=== PATIENT | male | born 1960 | race Caucasian/White ===

== ENCOUNTER 2017-12-29 14:50 | Emergency (ER) | payer OTHER ==
[2017-12-29] MEDS ORDERED: Lidocaine 1% 20 ML MDV INJECT ONE (15:58)
[2017-12-29] MEDS ORDERED: cefTRIAXone 1 GM Vial IM ONE (15:58)
[2017-12-29] MEDS ORDERED: Ketorolac 60 MG/2 ML SDV IM ONE (15:58)
--- NOTE | 2017-12-29 16:11 | EDM.PDOC ---
ED HPI GENERAL MEDICAL PROBLEM - General Chief Complaint: Upper Extremity Injury/Pain Stated Complaint: INFECTION ON FINGER Time Seen by Provider: 12/29/17 15:45 Source of Information: Reports: Patient History Limitations: Reports: No Limitations - History of Present Illness INITIAL COMMENTS - FREE TEXT/NARRATIVE: Patient presents to ER with complaints of right index finger pain. He relates that he froze his fingers about a year ago and then crushed this one in some equipment. Four months ago, he started to note an open wound to the distal tip of his finger and it has continued to "wear away since then". He finally presented to have this evaluated due to the pain he is experiencing and with his children's urging. He has been putting GENEVA on it and keeping it covered but it continues to get worse. He relates "he doesn't like to go to the doctor but now realizes he is probably going to lose his finger". No fevers. No pain in other digits. Onset: Gradual Duration: Week(s):, Getting Worse Location: Reports: Upper Extremity, Right Quality: Reports: Sharp Severity: Severe Worsens with: Reports: Movement Treatments QUALITY ASSURANCE TESTER: Reports: Dressing(s) Right 2-Index finger Pain Score (Numeric/FACES): 7 - Related Data Allergies Allergy/AdvReac Type Severity Reaction Status Date / Time No Known Allergies Allergy Verified 12/29/17 15:03 Home Meds: Home Meds . [No Known Home Meds] 12/29/17 [History] Past Medical History Cardiovascular History: Reports: Hypertension Social & Family History - Tobacco Use Smoking Status *Q: Current Every Day Smoker Years of Tobacco use: 40 Packs/Tins Daily: 1.5 - Caffeine Use Caffeine Use: Reports: Coffee - Recreational Drug Use Recreational Drug Use: No Review of Systems - Review of Systems Review Of Systems: See Below Constitutional: Denies: Chills, Diaphoresis, Fever Eyes: Reports: No Symptoms Ears: Reports: No Symptoms Nose: Reports: No Symptoms Mouth/Throat: Reports: No Symptoms Respiratory: Reports: No Symptoms Cardiovascular: Reports: No Symptoms GI/Abdominal: Reports: No Symptoms Musculoskeletal: Reports: Hand Pain Skin: Reports: Erythema, Wound Neurological: Reports: Tingling ED EXAM, GENERAL - Physical Exam Exam: See Below Exam Limited By: No Limitations General Appearance: Alert, Mild Distress Ears: Normal External Exam, Normal TMs Nose: Normal Inspection, Normal Mucosa Throat/Mouth: Normal Inspection, Normal Oropharynx Head: Normocephalic Neck: Normal Inspection, Supple, Non-Tender Respiratory/Chest: No Respiratory Distress, Lungs Clear, Normal Breath Sounds Cardiovascular: Regular Rate, Rhythm Extremities: Limited Range of Motion, Increased Warmth, Other (Right index finger noted to have foul odor, purulent drainage. Distal tip of finger is gone nursing home to the DIP joint. Bone exposed. Tissue very tender and red. Erythema does spread to the mid finger. ROM limited due to pain.) Course - Vital Signs Last Recorded V/S: Last Vital Signs Temp 98.7 F 12/29/17 15:00 Pulse 95 12/29/17 15:00 Resp 18 12/29/17 15:00 BP 190/104 H 12/29/17 15:31 Pulse Ox 98 12/29/17 15:00 - Orders/Labs/Meds Orders: Active Orders 24 hr Category Date Time Status Fingers Second Digit Rt F6 [CR] Stat Exams 12/29/17 15:46 Taken CULTURE WOUND [RM] Stat Lab 12/29/17 15:50 Results Meds: Medications Discontinued Medications Generic Name Dose Route Start Last Admin Trade Name Freq PRN Reason Stop Dose Admin Ceftriaxone Sodium 1 gm 12/29/17 15:58 12/29/17 16:14 Rocephin IM 12/29/17 15:59 1 gm ONETIME ONE Administration Ketorolac Tromethamine 60 mg 12/29/17 15:58 12/29/17 16:14 Toradol IM 12/29/17 15:59 60 mg ONETIME ONE Administration Lidocaine HCl 20 ml 12/29/17 15:58 12/29/17 16:14 Xylocaine 1% INJECT 12/29/17 15:59 2.1 ml ONETIME ONE Administration - Re-Assessments/Exams Free Text/Narrative Re-Assessment/Exam: 12/29/17 Xray taken. Does appear to disruption of the distal phalanx wound cultured. Applied GENEVA. Wrapped with telfa and eric. Rocephin and Toradol given. Contacted the wound clinic in [place]. Will see patient on Friday for further definitive treatment of this digit. Family aware Departure - Departure Time of Disposition: 16:03 Disposition: Home, Self-Care 01 Condition: Fair Clinical Impression: Cellulitis and abscess of finger, unspecified - Discharge Information Instructions: Acetaminophen; Hydrocodone tablets or capsules, Lisinopril tablets, Sulfamethoxazole; Trimethoprim, SMX-TMP tablets Forms: ED Department Discharge Additional Instructions: 1. Keep wound clean and dry and covered 2. Bactrim DS one tab twice a day for 10 days 3. Erin 5/325 1-2 tabs every 6 hours as needed for pain 4. Lisinopril 10 mg daily 5. Wound care appointment on 1 pm at [facility] 6. Contact us with any questions - My Orders Last 24 Hours: My Active Orders 12/29/17 15:46 Fingers Second Digit Rt F6 [CR] Stat 12/29/17 15:50 CULTURE WOUND [RM] Stat - Assessment/Plan Last 24 Hours: My Active Orders 12/29/17 15:46 Fingers Second Digit Rt F6 [CR] Stat 12/29/17 15:50 CULTURE WOUND [RM] Stat
== END 2017-12-29 16:32 | disposition home or self-care (01) ==
LOC: CC.ED 14:50
DX: L03.011 Cellulitis of right finger (principal); L02.511 Cutaneous abscess of right hand; F17.210 Nicotine dependence, cigarettes, uncomplicated; I10 Essential (primary) hypertension
CPT/HCPCS: 73140-F6; 87070; 96372; 99283; J0696; J1885

== ENCOUNTER 2018-08-26 08:42 | Emergency (ER) | payer OTHER ==
[2018-08-26] MEDS ORDERED: Sodium Chloride 0.9% 500 ML ONE (09:09)
[2018-08-26] MEDS ORDERED: Metoprolol Tartrate 5 MG/5 ML SDV ONE (09:10)
[2018-08-26] MEDS ORDERED: Metoprolol Tartrate 5 MG/5 ML SDV IVPUSH ONE (09:17)
--- NOTE | 2018-08-26 09:17 | EDM.PDOC ---
ED HPI GENERAL MEDICAL PROBLEM - General Chief Complaint: Neurological Problem Stated Complaint: SLEEPING ALL THE TIME Time Seen by Provider: 08/26/18 08:55 Source of Information: Reports: Patient, Family History Limitations: Reports: Altered Mental Status - History of Present Illness INITIAL COMMENTS - FREE TEXT/NARRATIVE: Patient presents today with family with a 2 week history of change in mental status. Son reports that on , he seemed confused, was just laying around on the couch but was still conversive. Over the next 2 days, status worsened and on that Friday, could hardly arouse him but when they did, he refused to come to the doctor. Son reports that at times, he does seem coherent , other times not. Has been laying on the couch much of the last 2 weeks. Not going to work, not eating or drinking much. Today, told him he was going and do to his weakness, "he couldn't prevent us from bringing him here". Patient is oriented to person and place, disoriented to time. Uncooperative with answering any questions. Alert. Onset: Gradual Duration: Week(s): Location: Reports: Generalized Severity: Moderate Associated Symptoms: Reports: Confusion, Weakness. Denies: Chest Pain, Cough, Fever/Chills, Loss of Appetite, Nausea/Vomiting, Shortness of Breath - Related Data Allergies Allergy/AdvReac Type Severity Reaction Status Date / Time No Known Allergies Allergy Verified 08/26/18 09:34 Home Meds: Home Meds Lisinopril 10 mg PO DAILY 08/26/18 [History] Past Medical History Cardiovascular History: Reports: Hypertension Social & Family History - Caffeine Use Caffeine Use: Reports: Coffee ED ROS GENERAL - Review of Systems Review Of Systems: See Below Constitutional: Reports: Malaise, Weakness, Decreased Appetite, Other (ROS minimal from patient as will not elaborate on anything except say he's in pain. Other information from family). Denies: Fever, Chills HEENT: Reports: Nosebleed, Vision Change. Denies: Ear Pain, Rhinitis, Sinus Problem Respiratory: Denies: Shortness of Breath, Cough Cardiovascular: Denies: Chest Pain, Edema, Lightheadedness Endocrine: Denies: Fatigue GI/Abdominal: Denies: Abdominal Pain, Nausea, Vomiting Skin: Reports: Pallor Neurological: Reports: Confusion, Weakness ED EXAM, NEURO - Physical Exam Exam: See Below Exam Limited By: Uncooperative General Appearance: Alert, WD/WN Eye Exam: Bilateral Eye: PERRL, Other (Patient refused to follow any command for exam. Unable to examine EOM as a result) Ears: Normal External Exam, Normal TMs Nose: Other (Old dried blood around right nare, no active bleeding noted.) Throat/Mouth: Other (dried blood on lips. Mucous membranes very dry, white coating on tongue) Head Exam: Normocephalic Neck: Normal Inspection, Supple, Non-Tender Respiratory/Chest: No Respiratory Distress, Lungs Clear Cardiovascular: Regular Rate, Rhythm GI/Abdominal: Normal Bowel Sounds, Soft, Non-Tender Neurological: Alert, Other (oriented to person and place. Will not follow commands to check cranial nerves, uncooperative, stubborn. Will not even attempt to squeeze my hands to check palmar grasps but does have range of motion noted. able to stand with help. ) Extremities: Normal Capillary Refill Psychiatric: Other (uncooperative) Skin Exam: Jaundice, Pallor Course - Vital Signs Last Recorded V/S: Last Vital Signs Temp 98.8 F 08/26/18 09:55 Pulse 91 08/26/18 09:55 Resp 16 08/26/18 09:55 BP 208/112 H 08/26/18 10:23 Pulse Ox 100 08/26/18 09:55 - Orders/Labs/Meds Orders: Active Orders 24 hr Category Date Time Status Head wo Cont [CT] Routine Exams 08/26/18 Taken Labs: Laboratory Tests 08/26/18 08/26/18 08/26/18 Range/Units 08:51 09:13 09:13 WBC 19.9 H (5.0-10.0) 10^3/uL RBC 4.70 (4.50-6.00) 10^6/uL Hgb 14.8 (14.0-18.0) g/dL Hct 42.6 (40.0-54.0) % MCV 90.6 (82.0-94.0) fL MCH 31.5 (27.0-32.0) pg MCHC 34.7 (33.0-38.0) g/dL RDW Coeff of Antonella 17.5 H (11.0-15.0) % Plt Count 90 L (150-400) 10^3/uL Neut % (Auto) 81.0 (35-85) % Lymph % (Auto) 8.5 L (10-55) % Worth % (Auto) 9.7 (0-16) % Eos % (Auto) 0.5 (0-5) % Baso % (Auto) 0.3 (0-3) % Neut # (Auto) 16.11 H (1.80-7.00) 10^3/uL Lymph # (Auto) 1.68 (1.00-4.80) 10^3/uL Worth # (Auto) 1.92 H (0.00-0.80) 10^3/uL Eos # (Auto) 0.10 (0.00-0.45) 10^3/uL Baso # (Auto) 0.05 10^3/uL PT 10.7 (9.7-12.3) SEC INR 1.03 (0.92-1.18) Sodium (136-145) mEq/L Potassium (3.5-5.0) mEq/L Chloride (98-106) mEq/L Carbon Dioxide (21-32) mmol/L BUN (7-18) mg/dL Creatinine (0.7-1.3) mg/dL Est Cr Clr Drug Dosing mL/min Estimated GFR (MDRD) (>=60) mL/min Glucose (75-99) mg/dL Calcium (8.4-10.1) mg/dL Total Bilirubin (0.0-1.0) mg/dL AST (15-37) U/L ALT (12-78) U/L Alkaline Phosphatase (46-116) U/L Creatine Kinase (35-232) U/L Troponin I (0.00-0.06) ng/mL Total Protein (6.4-8.2) g/dL Albumin (3.4-5.0) g/dL Urine Color Yellow (YELLOW) Urine Appearance Clear (CLEAR) Urine pH 5.5 (4.5-8.0) Ur Specific Moore 1.010 (1.003-1.020) Urine Protein 100 H (NEGATIVE) mg/dL Urine Glucose (UA) Negative (NEGATIVE) mg/dL Urine Ketones Negative (NEGATIVE) mg/dL Urine Occult Blood Large H (NEGATIVE) Urine Nitrite Negative (NEGATIVE) Urine Bilirubin Negative (NEGATIVE) Urine Urobilinogen 0.2 (0.2-1.0) EU/dL Ur Leukocyte Esterase Negative (NEGATIVE) Urine RBC 5-10 H (0-5) /HPF Urine WBC Not seen (0-5) /HPF Ur Epithelial Cells Few H (NOT SEEN) /HPF Urine Opiates Screen (NEGATIVE) Ur Oxycodone Screen (NEGATIVE) Urine Methadone Screen (NEGATIVE) Ur Barbiturates Screen (NEGATIVE) U Tricyclic Antidepress (NEGATIVE) Ur Phencyclidine Scrn (NEGATIVE) Ur Amphetamine Screen (NEGATIVE) U Methamphetamines Scrn (NEGATIVE) Urine MDMA Screen (NEGATIVE) U Benzodiazepines Scrn (NEGATIVE) Urine Cocaine Screen (NEGATIVE) U Marijuana (THC) Screen (NEGATIVE) 08/26/18 08/26/18 Range/Units 09:13 11:30 WBC (5.0-10.0) 10^3/uL RBC (4.50-6.00) 10^6/uL Hgb (14.0-18.0) g/dL Hct (40.0-54.0) % MCV (82.0-94.0) fL MCH (27.0-32.0) pg MCHC (33.0-38.0) g/dL RDW Coeff of Antonella (11.0-15.0) % Plt Count (150-400) 10^3/uL Neut % (Auto) (35-85) % Lymph % (Auto) (10-55) % Worth % (Auto) (0-16) % Eos % (Auto) (0-5) % Baso % (Auto) (0-3) % Neut # (Auto) (1.80-7.00) 10^3/uL Lymph # (Auto) (1.00-4.80) 10^3/uL Worth # (Auto) (0.00-0.80) 10^3/uL Eos # (Auto) (0.00-0.45) 10^3/uL Baso # (Auto) 10^3/uL PT (9.7-12.3) SEC INR (0.92-1.18) Sodium 137 (136-145) mEq/L Potassium 3.1 L D (3.5-5.0) mEq/L Chloride 98 (98-106) mEq/L Carbon Dioxide 24 (21-32) mmol/L BUN 64 H D (7-18) mg/dL Creatinine 2.7 H* D (0.7-1.3) mg/dL Est Cr Clr Drug Dosing 32.73 mL/min Estimated GFR (MDRD) 24 L (>=60) mL/min Glucose 179 H (75-99) mg/dL Calcium 9.3 (8.4-10.1) mg/dL Total Bilirubin 4.0 H (0.0-1.0) mg/dL AST 57 H (15-37) U/L ALT 45 (12-78) U/L Alkaline Phosphatase 121 H (46-116) U/L Creatine Kinase 89 (35-232) U/L Troponin I 0.279 H (0.00-0.06) ng/mL Total Protein 7.6 (6.4-8.2) g/dL Albumin 3.2 L (3.4-5.0) g/dL Urine Color (YELLOW) Urine Appearance (CLEAR) Urine pH (4.5-8.0) Ur Specific Moore (1.003-1.020) Urine Protein (NEGATIVE) mg/dL Urine Glucose (UA) (NEGATIVE) mg/dL Urine Ketones (NEGATIVE) mg/dL Urine Occult Blood (NEGATIVE) Urine Nitrite (NEGATIVE) Urine Bilirubin (NEGATIVE) Urine Urobilinogen (0.2-1.0) EU/dL Ur Leukocyte Esterase (NEGATIVE) Urine RBC (0-5) /HPF Urine WBC (0-5) /HPF Ur Epithelial Cells (NOT SEEN) /HPF Urine Opiates Screen Negative (NEGATIVE) Ur Oxycodone Screen Negative (NEGATIVE) Urine Methadone Screen Negative (NEGATIVE) Ur Barbiturates Screen Negative (NEGATIVE) U Tricyclic Antidepress Negative (NEGATIVE) Ur Phencyclidine Scrn Negative (NEGATIVE) Ur Amphetamine Screen Negative (NEGATIVE) U Methamphetamines Scrn Negative (NEGATIVE) Urine MDMA Screen Negative (NEGATIVE) U Benzodiazepines Scrn Negative (NEGATIVE) Urine Cocaine Screen Negative (NEGATIVE) U Marijuana (THC) Screen Negative (NEGATIVE) Meds: Medications Discontinued Medications Generic Name Dose Route Start Last Admin Trade Name Freq PRN Reason Stop Dose Admin Fentanyl 25 mcg 08/26/18 10:15 08/26/18 10:17 Sublimaze IVPUSH 25 mcg Q6H PRN Administration Pain Fentanyl Confirm 08/26/18 10:07 08/26/18 10:43 Sublimaze Administered 08/26/18 10:08 Not Given Dose 100 mcg .ROUTE .STK-MED ONE Sodium Chloride 1,000 mls @ 75 mls/hr 08/26/18 09:30 08/26/18 09:30 Normal Saline IV 75 mls/hr ASDIRECTED ACE Administration Sodium Chloride Confirm 08/26/18 09:09 08/26/18 09:26 Normal Saline Administered 08/26/18 09:10 Not Given Dose 500 mls @ as directed .ROUTE .STK-MED ONE Potassium Chloride/Sodium Chloride 1,000 mls @ 75 mls/hr 08/26/18 10:00 08/26 10:25 Normal Saline With 20 Meq Kcl IV 75 mls/hr ASDIRECTED ACE Administration Labetalol HCl 20 mg 08/26/18 09:57 08/26/18 10:43 Normodyne IVPUSH 08/26/18 09:58 Not Given ONETIME ONE Protocol Labetalol HCl 10 mg 08/26/18 10:14 08/26/18 10:15 Normodyne IVPUSH 08/26/18 10:15 10 mg ONETIME ONE Administration Protocol Metoprolol Tartrate 5 mg 08/26/18 09:17 08/26/18 09:20 Lopressor IVPUSH 08/26/18 09:18 5 mg ONETIME ONE Administration Metoprolol Tartrate Confirm 08/26/18 09:10 08/26/18 09:26 Lopressor Administered 08/26/18 09:11 Not Given Dose 5 mg .ROUTE .STK-MED ONE - Re-Assessments/Exams Free Text/Narrative Re-Assessment/Exam: 08/26/[address] report, has acute hemorrhage of 3rd venticle. Have given Metoprolol 5 mg IV at this point. Contacted [facility] regarding transfer of patient. Accepting physician Dr. Rodriguez. Recommended Labetolol or hydralazine for Blood pressure. [facility] contacted for transfer. Patient and family advised of risks and benefits of transfer. Risks of transfer include worsening status, aircraft crash or even . Benefits of transfer include more specialized care with neurosurgery, interventions for bleed and hypertension. Risks of non transfer include worsening status and even . Benefits of non transfer include care close to home. Patient and family in agreement for transfer. Departure - Departure Time of Disposition: 10:20 Disposition: DC/Tfer to Acute Hospital 02 Condition: Undetermined Clinical Impression: Intraventricular hemorrhage - Discharge Information Forms: ED Department Discharge Additional Instructions: Transfer [facility] to [facility] ER to Dr. Rodriguez. - My Orders Last 24 Hours: My Active Orders 08/26/18 Head wo Cont [CT] Routine - Assessment/Plan Last 24 Hours: My Active Orders 08/26/18 Head wo Cont [CT] Routine
[2018-08-26] MEDS ORDERED: Sodium Chloride 0.9% 1,000 ML IV SCH (09:30)
[2018-08-26] MEDS ORDERED: Labetalol 100 MG/20 ML MDV IVPUSH ONE ×2 (09:57→10:14)
[2018-08-26] MEDS ORDERED: NS + KCl 20mEq/L 1,000 ML IV SCH (10:00)
[2018-08-26] MEDS ORDERED: fentaNYL 100 MCG/2 ML SDV ONE (10:07)
[2018-08-26] MEDS ORDERED: fentaNYL 100 MCG/2 ML SDV IVPUSH PRN (10:15)
--- OUTSIDE RECORDS SUMMARY | 2018-09-18 14:43 | XMSREPORT | Summary of Care ---
:[address] [facility] Address [facility] [place] [address] Care Team Providers Name Role Phone Pcp, No MD Primary Care Provider Unavailable Provider, No Attributed RESOURCE Attributed Provider Unavailable Reason for Referral Comprehensive Primary Care Plus (Routine) Status Reason Specialty Diagnoses / Procedures Referred By Referred To Contact Contact New Request Neurology Diagnoses Nontraumatic intracerebral hemorrhage, unspecified cerebral location, unspecified laterality Nontraumatic injury of brain, without loss of consciousness, initial encounter Cognitive and neurobehavioral dysfunction following brain injury Pilar Strange [facility] [address] [place] [address] [place] [address] Phone: Scheduling Instructions This is an electronic referral. Transitions of Care (Routine) Status Reason Specialty Diagnoses / Referred By Referred To Procedures Contact Contact NOT REQUIRED Service Not Diagnoses Nontraumatic intracerebral hemorrhage, unspecified cerebral location, unspecified laterality Nontraumatic injury of brain, without loss of consciousness, initial encounter Visual changes SHAN Strange Available at [facility] Quezada OD [facility] [address] [place], [place] [address] [address] [place], [place] Phone: [phone] Reason for Visit Auth/Cert Status Reason Specialty Diagnoses / Procedures Referred By Contact Referred To Contact Encounter Details Date Type Department Care Team Description 09/09/2018 - Hospital Encounter [facility] Higinio Motley MD [address] [place] [address] [phone] Nontraumatic injury 09/18/2018 [place] [facility] Rosas Canas MD [address] [place] [address] [phone] of brain [address] [place] [address] Allergies No Known Allergiesas of this encounter Medications Medication Sig Dispensed Refills Start Date End Date Status acetaminophen Take 2 tablets 0 09/18/2018 Active (TYLENOL) 500 mg (1,000 mg) by tabletIndications: mouth every 6 Pain hours as needed for mild pain, moderate pain or headache atorvaSTATin Take 1 tablet 30 tablet 0 09/18/2018 09/23/2019 Active (LIPITOR) 40 mg (40 mg) by tabletIndications: mouth every Dyslipidemia night at bedtime carVEDilol (COREG) Take 1 tablet 60 tablet 0 09/18/2018 09/23/2019 Active 12.5 mg (12.5 mg) by tabletIndications: mouth 2 times Essential a day with hypertension meals docusate sodium Take 1 capsule 0 09/18/2018 Active (COLACE) 100 MG (100 mg) by capsuleIndications: mouth 2 times Constipation, a day unspecified constipation type lisinopril Take 1 tablet 30 tablet 0 09/19/2018 09/24/2019 Active (PRINIVIL, ZESTRIL) (20 mg) by 20 mg mouth 1 time tabletIndications: per day Essential hypertension mirtazapine Take 1 tablet 30 tablet 0 09/18/2018 Active (REMERON) 7.5 mg (7.5 mg) by tabletIndications: mouth every Poor appetite night at bedtime multivitamin Take 1 tablet 0 09/19/2018 Active therapeutic with by mouth 1 minerals (THERA-M) time per day tabletIndications: Increased nutritional needs nicotine (NICODERM) Apply 1 patch 30 patch 0 09/19/2018 09/24/2019 Active 21 mg/24hr (21 mg) to the [id number]: skin 1 time Tobacco abuse per day omega-3 fatty acids Take 1 capsule 0 09/18/2018 Active (FISH OIL) 1000 mg (1,000 mg) by capsuleIndications: mouth 3 times Increased a day with nutritional needs meals vitamin C, ascorbic Take 1 tablet 0 09/19/2018 Active acid, 250 MG (250 mg) by tabletIndications: mouth 1 time Increased per day nutritional needs vitamin D3, Take 1 tablet 0 09/19/2018 Active cholecalciferol, (2,000 Units) 2000 unit by mouth 1 tabletIndications: time per day Increased nutritional needs sodium bicarbonate Take 1 tablet 60 tablet 0 09/18/2018 Active 650 MG (650 mg) by tabletIndications: mouth 2 times CKD (chronic kidney a day disease) stage 3, GFR 30-59 ml/min, Acidosis lisinopril Take 10 mg by 0 03/09/2018 09/18/2018 Discontinued (PRINIVIL, ZESTRIL) mouth 1 time 10 mg tablet per day as of this encounter Active Problems Problem Noted Date Cognitive and neurobehavioral dysfunction following brain injury 09/09/2018 Visual changes 09/09/2018 CKD (chronic kidney disease) stage 3, GFR 30-59 ml/min 09/09/2018 Acidosis 09/09/2018 Chronic systolic CHF (congestive heart failure) 09/09/2018 Aneurysm of internal carotid artery 09/09/2018 Overview: Left; S/P coiling Inability to perform activities of daily living 09/09/2018 Impaired gait and mobility 09/09/2018 Impaired instrumental activities of daily living (IADL) 09/09/2018 IVH (intraventricular hemorrhage) 08/28/2018 S/P coil embolization of cerebral aneurysm 08/28/2018 Overview: Left ICA ICH (intracerebral hemorrhage) 08/26/2018 Nontraumatic injury of brain 08/26/2018 Tobacco abuse 01/01/2018 Glaucoma 12/31/2017 Hypertension 12/31/2017 as of this encounter Resolved Problems Problem Noted Date Resolved Date Osteomyelitis of finger of right hand 01/01/2018 09/09/2018 Hyponatremia 01/01/2018 09/09/2018 Hyperglycemia 01/01/2018 09/09/2018 as of this encounter Social History Tobacco Use Types Packs/Day Years Used Date Current Every Day Smoker Cigarettes 1.5 20 Started: 11/03/1997 Smokeless Tobacco: Never Used Tobacco Cessation: Ready to Quit: No; Counseling Given: Yes Alcohol Use Drinks/Week oz/Week Comments Yes 1 Cans of beer 0.6 occasional beer drinker Alcohol Habits Answer Date Recorded How often do you have a drink containing alcohol? Monthly or less 08/26/2018 How many drinks containing alcohol do you have on a Not asked typical day when you are drinking? How often do you have six or more drinks on one Not asked occasion? Sexually Active Control Partners Comments Not Currently Sex Assigned at Date Recorded Not on file Job Start Date Occupation Industry Not on file Not on file Not on file Travel History Travel Start Travel End No recent travel history available. as of this encounter Last Filed Vital Signs Vital Sign Reading Time Taken Blood Pressure 117/71 09/18/2018 8:00 AM [facility] Pulse 80 09/18/2018 8:00 AM [facility] Temperature 37 C (98.6 F) 09/18/2018 8:00 AM [facility] Respiratory Rate 16 09/18/2018 8:00 AM [facility] Oxygen Saturation 100% 09/18/2018 8:00 AM [facility] Inhaled Oxygen Concentration - - Weight 79.3 kg (174 lb 12.8 oz) 09/17/2018 2:00 PM [facility] Height 185.4 cm (6' 1") 09/09/2018 5:00 PM [facility] Body Mass Index 23.06 09/17/2018 2:00 PM [facility] in this encounter Functional Status Functional Status Response Date of Assessment Is the person deaf or does he/she have serious difficulty No 09/09/2018 hearing? Is this person blind or does he/she have difficulty No 09/09/2018 seeing even when wearing glasses? Do you have difficulty with walking, balance, climbing Yes 09/09/2018 stairs, or had a fall in the last 3 months? Does the patient have difficulty dressing or bathing? Yes 09/09/2018 Because of a physical, mental, or emotional condition; Yes 09/09/2018 does this person have difficulty doing errands alone such as visiting a doctor's office or shopping? Cognitive Status Response Date of Assessment Because of a physical, mental, or emotional condition; Yes 09/09/2018 does this person have serious difficulty concentrating, remembering, or making decisions? as of this encounter Discharge Instructions Reyna Millard PA-C - 09/18/2018 Please take a B complex vitamin over the counter. Please recheck sodium level with your PCP at your upcoming appointment. When You Have an Intracranial Hemorrhage You have an intracranial hemorrhage. Thisis bleeding that occurs in any part of the brain or between the brain and the skull. Bleeding can damage brain tissue. It can also lead to brain swelling or brain compression. If the bleeding is severe, treatment will be needed to limit brain. Treatment may also reduce your risk of having long-term brain (neurologic) problems. Possible causes of intracranial hemorrhage include an arteriovenous malformation or an aneurysm. What are the causes of intracranial hemorrhage? These can include: Trauma, such as a head injury Untreated elevated blood pressure Problems with abnormal blood vessels in the brain, such as: ? An abnormal formation of blood vessels (arteriovenous malformation) ? A balloon-like bulge in the wall of a blood vessel in the brain (aneurysm) ? Weakened blood vessels that occur with some brain tumors Sickle cell disease Medical diseases that make you more prone to bleeding What are the symptoms of intracranial hemorrhage? Symptoms can include: Sudden, severe headache Dizziness or fainting Trouble with vision, speech, or movement Confusion, extreme irritability, or sudden personality change, or coma Fever Stiff neck Seizures or convulsions Nausea and vomiting How is intracranial hemorrhage diagnosed? Intracranial hemorrhage is an emergency. Your doctor will advise you to go to the closest emergency room for evaluation and treatment if intracranial hemorrhage is suspected. These are doctors with special training to find and treat problems that affect the brain and nervous system. The doctor will ask about your health history and symptoms. The doctor will also examine you. Tests will be done as well. These can include: MRI or CT scan. These provide detailed pictures of the brain. They are used to help check for bleeding. During the test, fluid called contrast dye may be used to make the blood vessels and brain easier to see. Angiography. This test takes pictures of the blood vessels in the brain. During the test, a thin tube called a catheter is guided into the blood vessels leading to the brain. Contrast dye is sent through the tube to make the blood vessels easier to see. This test can also be done with an MRI or CT scan. this test is often replaced or preceded with MRI (magnetic resonance angiography) if available. Transcranial doppler (TCD). This test shows the flow of blood through the blood vessels in the brain. It uses harmless sound waves to form pictures of the brain and blood vessels. It is usedto monitor ongoing conditions that may worsen the bleeding. Lab testing. Blood tests are doneto identify risk factors include platelet count and other tests to measure blood clotting. How is intracranial hemorrhage treated? Treatment depends on the cause, size, and locationof the bleeding. It also depends on your overallhealth. Treatment can include: Observation. Small amounts of bleeding will reabsorb naturally and does not require surgery. You may need to be observed in the hospital to watch for symptoms of worsening bleeding. Medical management. Use of medicine to control the bleeding. Medicine to prevent seizures. Medicine to control blood pressure. Surgery. This may be done to remove trapped blood or excess fluid in the brain. Repair of abnormal blood vessels in the brain. This may involve surgery to clip or remove the abnormal blood vessel. Or a catheter can be used to insert glue, a coil, or a balloon into the abnormal blood vessel. This closes it off. This also helps reduce the risk of further bleeding. What are the long-term concerns? Each person's outcome will vary depending on the size, cause, and location of the bleeding. Some people do not have any problems after treatment. Other children may have ongoing neurologic problems. These can include trouble with seizures, learning, speech, or movement. In these cases, regular follow-up with the doctor are needed. Supportive care, such as speech, physical, or occupational therapy, may also be needed. Date Last Reviewed: 10/13/201519994804-2117 [employer]. [address] [place] [address]. All rights reserved. This information is not intended as a substitute for professional medical care. Always follow your healthcare professional's instructions. Discharge Instructions for Cardiomyopathy Cardiomyopathymeans that your heart is not working as itnormally should. This condition can makeit more difficult to do things that may have been easy for you in the past. But with proper treatment and some lifestyle changes,you and your healthcare provider can help your heart do its job. Home care Work hard to remove the salt from your diet. Here are tips: Limit canned, dried, packaged, and fast foods. Dont add salt to your food at the table. Season foods with herbs instead of salt when you cook. When you eat out, ask that the ex chef not add any salt to your dish. Don't eat fried or greasy foods. Be careful of bottled beverages. They can contain a lot of salt. Also check the labels of coaa-hsq-ntewngq medicines and supplements. They may be high in sodium. Askyour pharmacist or provider if you need help finding a low -salt product. Be as active as you can. Ask your healthcare provider how to get started: Simple activities such as walking or gardening can help. Find activities you enjoy and make them a priority. Cardiac rehabilitation programs can help you reach your activity goals. You exercise while staff closely watches the stress on your heart. These programs may be covered by insurance. Other tips for home care: Limit how much fluid you have each day. Your healthcare provider will tell you how much is safe. Break the smoking habit. Enroll in a stop-smoking program to improve your chances of success. Join smoking cessation support groups or ask your healthcare provider about nicotine replacement products. Take your medicines exactly as directed. Dont skip doses. Dont stop taking your medicines without talking to your healthcare provider first. Some wmyc-lsj-pfmkisa medicines and herbal supplements can increase your heart rate or blood pressure. This can put extra stress on your heart. Check with your pharmacist to see if products are heart-safe and won't interact with other medicines you take. Visit your healthcare provider regularly. Mention any problems with your treatment plan. Togetheryou can find a plan that works for you. Weigh yourself at the same time each day. The best time is in the morning after you wake up and after urinating. Wear the same clothing each time. Keep a written record of your daily weight. Limit how much alcohol you drink. Too much alcohol isn't good for the heart. Healthcare providersadvise no more than 1 drink per day for women and 2 drinks per day for men. Follow-up care Make a follow-up appointment as directed by our staff. When to call your healthcare provider Call your healthcare provider right away if you have any of the following: You gain more than 2 pounds in 1 day, more than 5 pounds in 1 week, or whatever weight gain you were told to report by your healthcare provider New or increasedchest pain that doesn't get better with medicine New or increasedshortness of breath or coughing Weakness in the muscles of your face, arms, or legs Trouble speaking Rapid pulse or pounding heartbeat Fainting, or feeling dizzy or lightheaded New or increased swelling in your hands, feet, or ankles Date Last Reviewed: 11/13/201619991203-1743 [employer]. [address] [facility], [place] [address]. All rights reserved. This information is not intended as a substitute for professional medical care. Always follow your healthcare professional's instructions. What is High Blood Pressure? High blood pressure (also called hypertension) is known as the silent killer. This is because most of the time it doesnt cause symptoms. In fact , many people dont know they have it until other problems develop. In most cases, high blood pressure often requires lifelong treatment. Understanding blood pressure The circulatory system is made up of the heart and blood vessels that carry blood through the body. Your heart is the pump for this system. With each heartbeat (contraction), the heart sends blood out through large blood vessels called arteries. Blood pressure is a measure of how hard the moving bloodpushes against the miller of the arteries. High blood pressure can harm your health In a healthy blood vessel, the blood moves smoothly through the vessel and puts normal pressure on the vessel miller. High blood pressure occurs when blood pushes too hard against artery miller. This causes damage to the artery miller and then the formation of scar tissue as it heals. This makes the arteries stiff and weak. Plaque sticks to the scarred tissue narrowing and hardening the arteries. High blood pressure also causes your heart to work harder to get blood out to the body. High blood pressure raises your risk of heart attack, also known as acute myocardial infarction, or AMI, heart failure, and stroke. It can also lead to kidney disease, and blindness. In general, if you have high blood pressure, keeping your blood pressure below 130/80 mmHg may help prevent these problems. Your healthcare provider may prescribe medicine to help control blood pressure if lifestyle changes are not enough. It's important to know your blood pressure numbers. Blood pressure measurements are given as 2 numbers. Systolic blood pressure is the upper number. This is the pressure when the heart contracts. Diastolic blood pressure is the lower number. This is the pressure when the heart relaxes between beats. Blood pressure is categorized as normal, elevated, or stage 1 or stage 2 high blood pressure: Normal blood pressure is systolic of less than 120 and diastolic of less than 80 (120/80) Elevated blood pressure is systolic of 120 to 129 and diastolic less than 80 Stage 1 high blood pressure is systolic is 130 to 139 or diastolic between 80 to 89 Stage 2 high blood pressure is when systolic is 140 or higher or the diastolic is 90 or higher High blood pressure is diagnosed when multiple, separate readings show blood pressure above 130/80 mmHg. Talk with your healthcare provider if you have questions or concerns about your blood pressure readings. Measuring blood pressure An example of ablood pressure measurement is 120/70 (120 over 70). The top number is the pressure of blood against the artery miller during a heartbeat ( systolic). The bottom number is the pressure ofblood against artery miller between heartbeats (diastolic). Talk with your healthcare provider to find out what your blood pressure goals should be. Controlling blood pressure If your blood pressure is too high, work with your doctor on a plan for lowering it. Below are stepsyou can take that will help lower your blood pressure. Choose heart-healthy foods. Eating healthier meals helps you control your blood pressure. Ask your doctor about the DASH eating plan. This plan helps reduce blood pressure by limiting the amount of sodium (salt) you have in your diet. DASH also encourages eating plenty of fruits and vegetables, low-fat or non-fat dairy, whole-grains, and foods high in fiber, and low in fat. This also provides an enhanced amount of potassium which can also help lower blood pressure. Reduce sodium. Reducing sodium in your diet reduces fluid retention. Fluid retention caused by too much salt increases blood volume and blood pressure. The [employer] (AHA) "ideal" sodium intake recommendation is 1,500 milligrams per day. However, since Stat[employer]'s eat so much salt, the AHA says a positive change can occur by cutting back to even 2,400 milligrams of sodium a day. Maintain a healthy weight. Being overweight makes you more likely to have high blood pressure. Losing excess weight helps lower blood pressure. Exercise regularly. Daily exercise helps your heart and blood vessels work better and stay healthier. It can help lower your blood pressure. Stop smoking. Smoking increases blood pressure and damages blood vessels. Limit alcohol. Drinking too much alcohol can raise blood pressure. Men should have no more than 2drinks a day. Women should have no more than 1. (A drink is equal to 1 beer, or a small glass of wine, or a shot of liquor.) Control stress. Stress makes your heart work harder and beat faster. Controlling stress helps youcontrol your blood pressure. Facts about high blood pressure FeelingOK does not mean that blood pressure is under control. Likewise, feeling bad doesnt mean its out of control. The only way to know for sure is to check your pressure regularly. Medicine is only one part of controlling high blood pressure. You also need to manage your weight, get regular exercise, and adjust your eating habits. High blood pressure is usually a lifelong problem. But it can be controlled with healthy lifestyle changes and medicine. Hypertension is not the same as stress. Although stress may be a factor in high blood pressure, its only one part of the story. Blood pressure medicines need to be taken every day. Stopping suddenly may cause a dangerous increase in pressure. Date Last Reviewed: 02/07/201619993171-8389 [employer]. [address] [place] [address], [place] [address]. All rights reserved. This information is not intended as a substitute for professional medical care. Always follow your healthcare professional's instructions. in this encounter Progress Notes Reyna Bloom PA-C - 09/18/2018 8:42 AM CSTThe patient has been seen today by Dr. Higinio Motley and is medically stable to be seen at the clinic for specialty services necessary for the care of this patient while currently hospitalized at [facility]. The consult order for this specialty care by Dr. Paredes was previously placed in [facility]. This care is necessary at the clinic due to the needed diagnostic equipment that is not portable and not available within the hospital setting. Rosas Canas MD - 09/16/2018 8:51 AM CST INPATIENT REHAB PROGRESS NOTE Subjective Feels OK Vitals BP: 110/69 | Pulse: 68 | Resp: 16 | Temp: 97.8 F (36.6 C) Labs Labs (Last day) No results found within the past day. Exam General Appearance: alert, well appearing, and in no distress Mental Status: alert, oriented to person, place, and time, inappropriate safety awareness Chest: clear to auscultation, no wheezes, rales or rhonchi, symmetric air entry Heart: normal rate, regular rhythm, normal S1, S2, no murmurs, rubs, clicks or gallops Abdomen: soft, Bowel Sounds positive and nontender Neurological: alert, oriented, normal speech, no new focal findings or movement disorder noted and abnormal neurological exam unchanged from prior examinations Musculoskeletal: Normal. 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 Family noticed that he was confused for about 2 weeks. He was taken to the clinic and was found to have a SBP of [address] showed intraventricular hemorrhage. Evaluation showed left ICA terminal saccular aneurysm. He underwent coil embolization on August 28. Post-procedure course was unremarkable. He will further follow up with neurovascular team outpatient. -Intraventricular hemorrhage. Left ICA terminal saccular aneurysm. S/P DSA (R/L CCA, VA, LICA,starclose ), balloon assisted coil embolization of the LICA aneurysm. - Hypertension. -New-onset systolic CHF. Not in exacerbation.Willneedoutpatient follow- up with repeat echo. -Hyperlipidemia. Start statin. -DIANA on probable chronic stage III kidney disease. Creatinine currently stable around 1.7.Recheck labs in am. -Acidosis. Likely secondary to above. On sodium bicarbonate. Will need outpatient follow-up. -Mild anemia. Likely secondary to ongoing illness. Stable. -Tobacco use disorder. On nicotine patch. -DVT prophylaxis. On b.i.d. heparin. Continue current intensive rehabilitation plan. Kaden Olivo MD - 09/16/2018 12:00 AM CSTInpatient Progress Note PROVIDER: Kaden Olivo M.D., Internal Medicine LOCATION OF CARE: [facility] – [place] DATE OF SERVICE: 09/16/2018 PATIENT NAME: KRIS MÉNDEZ MR#: [id number] CSN: [id number] : 1960 SEX: M HOME: WORK: Mr. Kris Méndez is admitted to the acute rehabilitation unit following an intraventricular hemorrhage from uncontrolled hypertension and also noted to have a left internal carotid artery saccular aneurysm. IMPRESSION AND PLAN: 1. Intraventricular hemorrhage, likely secondary to hypertension, hypertensive bleed. The computedtomography (CT) scan at the time of admission showed an intraventricular hematoma involving the third and bilateral lateral ventricles, likely secondary to uncontrolled hypertension. The repeat scans show the hemorrhage is stable. Currently getting acute rehabilitation. Continue the management as per rehabilitation. 2. Left internal carotid artery aneurysm, status post balloon-assisted coil embolization. The patient is doing well. Neurosurgery has evaluated and signed off. Need to follow up with neurosurgery as an outpatient. Currently not on any antiplatelet medications. 3. Hypertension. The blood pressures are trending low. The patient did not get any hydralazine formore than 24 hours. We will continue with the Coreg, lisinopril, and hold the hydralazine and see how he does. If patient's blood pressures remain stable, we will continue with these 2 medications. 4. Hyperlipidemia. On Lipitor. 5. Chronic kidney disease (CKD) stage 3. The creatinine is stable around 1.7. Need to follow up with nephrology as an outpatient. 6. Chronic systolic congestive heart failure (CHF). The echocardiogram done shows ejection fraction (EF) of 45%. Continue with the lisinopril on Coreg. He will need to follow up with primary care provider (PCP) as an outpatient for repeat echocardiogram to see if the EF improves. 7. Deep venous thrombosis (DVT) prophylaxis. With sequential compression devices (SCDs). SUBJECTIVE: Patient is feeling okay. Still having some cognitive issues and impulsiveness. Otherwise, no other acute events happened overnight. REVIEW OF SYSTEMS: GENERAL: Generalized weakness. No fever or chills. RESPIRATORY: No cough. CARDIOVASCULAR: No chest pain. GASTROINTESTINAL: No nausea or vomiting. EXTREMITIES: As above. VITAL SIGNS: Reviewed. MEDICATIONS: Reviewed and adjusted. LABORATORY AND IMAGING STUDIES: Reviewed. PHYSICAL EXAMINATION: GENERAL: The middle-aged male is seen lying comfortable in the bed, not in any obvious distress. CARDIOVASCULAR: S1, S2 heard. No murmurs or gallops. LUNGS: Air entry is present on both sides. No wheezing or crepitations. ABDOMEN: Soft, flat, nontender. No organomegaly. CENTRAL NERVOUS SYSTEM: Awake, alert. Oriented to time, place, person. No focal deficits. EXTREMITIES: No pedal edema, moving all his limbs. Power is 4+/5 all over. DERMATOLOGICAL: Warm and moist skin noted. Kaden Olivo M.D., Internal Medicine Job ID/Trans ID: [id number] Doc ID: [id number] TRIMMER SAWYER CSTHiginio Motley MD - 09/15/2018 8:06 AM CST Physical Medicine and Rehabilitation Progress Note and Fsuz-cj-Pcim Visit Patient's Name: Kris Méndez Sr. Admit Date: 09/09/2018 : 1960 CSN: [id number] Date of Service: 09/15/2018 Subjective / Chief Complaint: Patient presents for Nontraumatic injury of brain Denies WALTON, nausea. Eating OK. MEDICAL: Vitals: BP 117/74 Pulse 81 Temp 97.9 F (36.6 C) Resp 16 Ht 1.854 m (6' 1") Wt 79.5 kg (175 lb 4.8 oz) SpO2 98% BMI 23.13 kg/m2 Vital Signs Min/Max (last 24 hours) Flowsheet Row Name Min Max Temp 97.4 F (36.3 C) 97.9 F (36.6 C) BP: Systolic 108 117 BP: Diastolic 71 74 Pulse 54 81 Resp 16 16 SpO2 98 % 98 % Weight: 81.1 kg (178 lb 12.8 oz) Exam General Appearance: alert, well appearing, and in no distress, normal appearing weight, acyanotic, in no respiratory distress Mental Status: depressed mood Chest: no tachypnea, retractions or cyanosis Heart: normal rate and regular rhythm Abdomen: soft, and nontender Neurological: abnormal neurological exam unchanged from prior examinations Extremities: Warm, dry, without edema Diagnostics: Labs (Last day) No results found within the past day. No results found for this or any previous visit (from the past 120 hour(s)). Assessment / Plan: Principal Problem: Nontraumatic injury of brain Active Problems: Glaucoma Hypertension Tobacco abuse ICH (intracerebral hemorrhage) IVH (intraventricular hemorrhage) Cognitive and neurobehavioral dysfunction following brain injury Visual changes CKD (chronic kidney disease) stage 3, GFR 30-59 ml/min Acidosis Chronic systolic CHF (congestive heart failure) Aneurysm of internal carotid artery S/P coil embolization of cerebral aneurysm Inability to perform activities of daily living Impaired gait and mobility Impaired instrumental activities of daily living (IADL) Resolved Problems: * No resolved hospital problems. * Medical management and modifications that will maximize the patient's capacity to benefit from, and participate in, the rehab process so that functional gains can be made for safe discharge to home/independent living: Monitor BP on current meds. Change scheduled tylenol to prn and assess pain/WALTON FUNCTIONAL: Mobility: Patient performs transfers with SBA. Ambulates 450 feet without a device with SBA-path deviation noted with safety cues for R side environment. Negotiates 20 steps with railing and SBA. Most recent Lindsay Balance Test score of 47/56. ADL: Patient completing basic ADL tasks and functional transfers with SBA and occasional verbal cuesfor safety. Patient demonstrating impaired cognition and visual perceptual skills that limit his ability to complete higher level IADL tasks safely and independently. Patient reqiures encouragement throughout to initiate tasks and participate therapy. Patient continues to demonstrate poor activity tolerance. Cognition / Language / Dysphagia: Patient demonstrated moderate-severe cognitive -linguistic impairment, characterized by deficits in attention, memory, problem solving, and reasoning skills. Impaired vision noted to negatively impact processing speed and performance on visual tasks. Patient benefited from MIN- MOD cueing across all simple attention activities. Continue POC. Assessment / Plan: Functional limitations/treatment plan and modifications needed to maximize the patient's capacity and functional skills: Continue 3 hour per day intensive Rehabilitation program, patient is toleratingtherapy well. Formulating this note and adjusting the plan of care, as well as managing the medical needs of this patient was developed by me personally performing a face to face examination of Kris Méndez , discussing this patient with nursing staff, reviewing the labs/data, current medications, therapynotes, nursing notes and other physician progress notes. MD Tolu Chiang Paul, MD - 09/14/2018 9:05 AM CST Physical Medicine and Rehabilitation Progress Note and Leni-sk-Xnij Visit Patient's Name: Kris Méndez Sr. Admit Date: 09/09/2018 : 1960 CSN: [id number] Date of Service: 09/14/2018 Subjective / Chief Complaint: Patient presents for Nontraumatic injury of brain Denies WALTON, Some nausea and weakness. Slept fair. MEDICAL: Vitals: BP 112/70 Pulse 70 Temp 97.6 F (36.4 C) Resp 16 Ht 1.854 m (6' 1") Wt 79.5 kg (175 lb 4.8 oz) SpO2 98% BMI 23.13 kg/m2 Vital Signs Min/Max (last 24 hours) Flowsheet Row Name Min Max Temp 97.6 F (36.4 C) 97.6 F (36.4 C) BP: Systolic 112 123 BP: Diastolic 70 78 Pulse 69 78 Resp 16 16 SpO2 98 % 99 % Weight: 81.1 kg (178 lb 12.8 oz) Exam General Appearance: alert, well appearing, and in no distress, normal appearing weight, acyanotic, in no respiratory distress Mental Status: depressed mood Chest: no tachypnea, retractions or cyanosis Heart: normal rate and regular rhythm Abdomen: soft and nontender Neurological: abnormal neurological exam unchanged from prior examinations Extremities: Warm, dry, without edema Diagnostics: Labs (Last day) No results found within the past day. No results found for this or any previous visit (from the past 120 hour(s)). Assessment / Plan: Principal Problem: Nontraumatic injury of brain Active Problems: Glaucoma Hypertension Tobacco abuse ICH (intracerebral hemorrhage) IVH (intraventricular hemorrhage) Cognitive and neurobehavioral dysfunction following brain injury Visual changes CKD (chronic kidney disease) stage 3, GFR 30-59 ml/min Acidosis Chronic systolic CHF (congestive heart failure) Aneurysm of internal carotid artery S/P coil embolization of cerebral aneurysm Inability to perform activities of daily living Impaired gait and mobility Impaired instrumental activities of daily living (IADL) Resolved Problems: * No resolved hospital problems. * Medical management and modifications that will maximize the patient's capacity to benefit from, and participate in, the rehab process so that functional gains can be made for safe discharge to home/independent living: Can stop SQ heparin, walking over 450 ft. Continue to treat and monitor HTN FUNCTIONAL: Mobility: Patient performs transfers with SBA. Ambulates 450 feet without a device with CGA to SBA-path deviation noted with safety cues for R side environment. Negotiates 20 steps with railing and CGA. Most recent Lindsay Balance Test score of 47/56. ADL: pt completes basic/ familiar ADLs with SBA with occassional verbal cues for initiation and safety. pt completed unfamiliar fucntional tasks, requiring mod/max A for problem solving with difficultycarrying over instructions. pt demonstrates poor activity tolerance, unable to tolerate session in department in afternoon. Cognition / Language / Dysphagia: Patient improved on Cog Log from two days ago to today. Assessment / Plan: Functional limitations/treatment plan and modifications needed to maximize the patient's capacity and functional skills: Continue 3 hour per day intensive Rehabilitation program, patient is toleratingtherapy well. Formulating this note and adjusting the plan of care, as well as managing the medical needs of this patient was developed by me personally performing a face to face examination of Kris Méndez Sr., discussing this patient with nursing staff, reviewing the labs/data, current medications, therapynotes, nursing notes and other physician progress notes. MD Tolu Chiang Paul, MD - 09/10/2018 9:05 AM CST Physical Medicine and Rehabilitation Progress Note and Wvot-qn-Imer Visit Patient's Name: Kris Méndez Sr. Admit Date: 09/09/2018 : 1960 CSN: [id number] Date of Service: 09/10/2018 Subjective / Chief Complaint: Patient presents for Nontraumatic injury of brain Slept OK. Denies WALTON, nausea, pain MEDICAL: Vitals: BP 112/68 Pulse 72 Temp 97.4 F (36.3 C) Resp 16 Ht 1.854 m (6' 1") Wt 81.1 kg (178 lb 12.8 oz) SpO2 100% BMI 23.59 kg/m2 Vital Signs Min/Max (last 24 hours) Flowsheet Row Name Min Max Temp 97.4 F (36.3 C) 97.7 F (36.5 C) BP: Systolic 99 118 BP: Diastolic 53 73 Pulse 69 72 Resp 16 16 SpO2 100 % 100 % MAP (mm Hg) 60 mm Hg 75 mm Hg Weight: 81.1 kg (178 lb 12.8 oz) Exam General Appearance: alert, well appearing, and in no distress, normal appearing weight, acyanotic, in no respiratory distress Mental Status: confused, not oriented Chest: no tachypnea, retractions or cyanosis Extremities: Warm, dry, without edema Diagnostics: Labs (Last day) No results found within the past day. No results found for this or any previous visit (from the past 120 hour(s)). Assessment / Plan: Principal Problem: Nontraumatic injury of brain Active Problems: Glaucoma Hypertension Tobacco abuse ICH (intracerebral hemorrhage) IVH (intraventricular hemorrhage) Cognitive and neurobehavioral dysfunction following brain injury Visual changes CKD (chronic kidney disease) stage 3, GFR 30-59 ml/min Acidosis Chronic systolic CHF (congestive heart failure) Aneurysm of internal carotid artery S/P coil embolization of cerebral aneurysm Inability to perform activities of daily living Impaired gait and mobility Impaired instrumental activities of daily living (IADL) Resolved Problems: * No resolved hospital problems. * Medical management and modifications that will maximize the patient's capacity to benefit from, and participate in, the rehab process so that functional gains can be made for safe discharge to home/independent living: SQ heparin until walking more. Monitor BP on current meds. FUNCTIONAL: Mobility: All assessments underway today. ADL: Cognition / Language / Dysphagia: Assessment / Plan: Functional limitations/treatment plan and modifications needed to maximize the patient's capacity and functional skills: Continue 3 hour per day intensive Rehabilitation program, patient is toleratingtherapy well. Formulating this note and adjusting the plan of care, as well as managing the medical needs of this patient was developed by me personally performing a face to face examination of Kris Méndez Semaj, discussing this patient with nursing staff, reviewing the labs/data, current medications, therapynotes, nursing notes and other physician progress notes. Higinio Motley MD in this encounter Plan of Treatment Date Type Specialty Care Team Description 09/23/2018 Office Visit Nephrology Alex Camargo MD [address] [place] [address] [phone] 10/20/2018 Office Visit Neurosurgery Last Sierra MD [address] [place] [address] [phone] 10/20/2018 Office Visit Physical Medicine and Higinio Motley MD Rehab [address] [place] [address] [phone] 12/15/2018 Office Visit Neurology Noy Brown, PHD [address] [place] [address] 12/15/2018 Clinical Support Neurology Visit Name Priority Associated Diagnoses Order Schedule CLINIC REFERRAL OPTOMETRY Routine Nontraumatic intracerebral Ordered: 2017 NON ONE CHART hemorrhage, unspecified cerebral location, unspecified laterality Nontraumatic injury of brain, without loss of consciousness, initial encounter Visual changes CLINIC REFERRAL Routine Nontraumatic intracerebral Ordered: 09/09/2018 NEUROPSYCHOLOGY ONE CHART hemorrhage, unspecified cerebral location, unspecified laterality Nontraumatic injury of brain, without loss of consciousness, initial encounter Cognitive and neurobehavioral dysfunction following brain injury Health Maintenance Due Date Last Done Comments Hepatitis C Screening 1960 HIV One Time Screening Ages 15-65 1975 Tetanus Vaccine 1978 Pneumococcal 19-64yr Highest 1979 Risk(Category 3) (1 of 3 - PCV13) Colorectal Cancer Screening 2010 Zoster Vaccine (1 of 2 - 2010 RZV,Shingrix) Annual Lung Screen 2015 Influenza Vaccine (#1) 2018 Diabetes Screening 09/13/2021 09/13/2018, 09/09/2018, 09/07/2018, Additional history exists Lipid Screening 09/04/2023 09/04/2018 as of this encounter Implants Implanted Type Area Agriculture Mechanic Device Shelf Model / Identifier Expiration Serial / Lot Date Coil Hydrofrm 10-Sr 3d 1x3 N [id number] Ea1 (Aka [id number])-Neurovascular-2017 [employer] / Implanted: Qty: 1 on 08/28/2018 by Last Sierra MD / [id number] Coil Hydrosft 3d-Sr [id number] N [id number] Ea1 (Aka [id number])-Neurovascular-08/28 [employer] [id number] / Implanted: Qty: 1 on 08/28/2018 by Last Sierra MD / [id number] Coil Hydrofrm 10-Sr 3d 1.5x2 N [id number] Ea1 (Aka [id number])-Neurovascular- [employer] [id number] / Implanted: Qty: 1 on 08/28/2018 by Last Sierra MD / [id number] Coil Hydrofrm 10-Sr 3d 1x2 N [id number] Ea1 (Aka [id number])-Neurovascular-2017 [employer] [id number] / Implanted: Qty: 1 on 08/28/2018 by Last Sierra MD / [id number] as of this encounter Procedures Procedure Name Priority Date/Time Associated Diagnosis Comments BASIC METABOLIC Routine 09/13/2018 6:20 AM Results for this PANEL [facility]IMMER [facility]WYER procedure are in the results section. in this encounter Results BASIC METABOLIC PANEL (09/13/2018 6:20 AM TRIMMER SAWYER) Glucose 102 (H) 70 - 100 mg/dL [facility] BUN 23 (H) 6 - 22 mg/dL [facility] Creatinine 1.71 (H) 0.80 - 1.30 mg/dL [facility] BUN/Creatinine Ratio 13.5 10.0 - 25.0 [facility] Sodium 137 135 - 145 meq/L [facility] Potassium 4.2 3.5 - 5.3 meq/L [facility] Chloride 104 99 - 110 meq/L [facility] CO2 21 20 - 29 meq/L [facility] Anion Gap with K 16 6 - 20 meq/L [facility] Calcium 9.5 8.5 - 10.5 mg/dL [facility] Age 58 Years [facility] eGFR Non- 41 (L) >=60 mL/min/1.73m2 [facility] eGFR 50 (L) >=60 mL/min/1.73m2 [facility] Specimen Blood - Blood Performing Organization Address City/State/Zipcode Phone Number [facility] [address] [place] [phone] in this encounter Visit Diagnoses Diagnosis Nontraumatic intracerebral hemorrhage, unspecified cerebral location, unspecified laterality Nontraumatic injury of brain, without loss of consciousness, initial encounter Cognitive and neurobehavioral dysfunction following brain injury Visual changes Unspecified visual disturbance Pain Generalized pain Dyslipidemia Other and unspecified hyperlipidemia Constipation, unspecified constipation type Poor appetite Anorexia Increased nutritional needs Essential hypertension Unspecified essential hypertension Tobacco abuse Tobacco use disorder CKD (chronic kidney disease) stage 3, GFR 30-59 ml/min Chronic kidney disease, Stage III (moderate) Acidosis Inability to perform activities of daily living Debility, unspecified Impaired gait and mobility Impaired instrumental activities of daily living (IADL) ICH (intracerebral hemorrhage) Intracerebral hemorrhage Glaucoma Unspecified glaucoma Hypertension Unspecified essential hypertension IVH (intraventricular hemorrhage) Intracerebral hemorrhage Chronic systolic CHF (congestive heart failure) Chronic systolic heart failure Aneurysm of internal carotid artery Aneurysm of artery of neck S/P coil embolization of cerebral aneurysm in this encounter Administered Medications Medication Order MAR Action Action Date Dose Rate Site acetaminophen (TYLENOL) tablet Given 09/15/2018 8:34 AM TRIMMER SAWYER 1,000 mg 1,000 mg 1,000 mg, Oral, Every six hours prn, Starting Fri09/15/18 at 0810, Until Discontinued, mild pain, moderate pain, headache, Post - Op, Total dose of acetaminophen from all acetaminophen containing products should not exceed 4 grams (4000 mg) per day., atorvaSTATin (LIPITOR) tablet 40 mg Given 09/17/2018 8:36 PM TRIMMER SAWYER 40 mg 40 mg, Oral, Bedtime, First dose on Fri09/09/18 at 2100, Until Discontinued Given 09/16/2018 9:09 PM TRIMMER SAWYER 40 mg Given 09/15/2018 8:52 PM TRIMMER SAWYER 40 mg bisacodyl (DULCOLAX) enteric coated tablet 10 mg 10 mg, Oral, One time a day prn, Starting Fri09/09/18 at 1652, Until Discontinued, constipation, Use first for constipation unless patient cannot take oral medications., bisacodyl (DULCOLAX) suppository 10 mg 10 mg, Rectal, One time a day prn, Starting Fri09/09/18 at 1652, Until Discontinued, constipation, Use second for constipation. If patient cannot take oral medications, use first for constipation., carVEDilol (COREG) tablet 12.5 mg Given 09/18/2018 8:28 AM TRIMMER SAWYER 12.5 mg 12.5 mg, Oral, Two times a day with meals, First dose on Fri09/10/18 at 1730, Until Discontinued, Take with food. Hold for SBP less than 90 Hold for HR less than 55 Take with food., Given 09/17/2018 6:01 PM TRIMMER SAWYER 12.5 mg Given 09/17/2018 8:26 AM TRIMMER SAWYER 12.5 mg docusate sodium (COLACE) capsule 100 mg Given 09/18/2018 8:27 AM TRIMMER SAWYER 100 mg 100 mg, Oral, Two times a day, First dose on Fri09/09/18 at 2100, Until Discontinued, Swallow cap whole. Should not be crushed or chewed., Given 09/15/2018 8:53 PM TRIMMER SAWYER 100 mg Given 09/15/2018 8:34 AM TRIMMER SAWYER 100 mg docusate sodium (THEREVAC-SB MINI;ENEMEEZ MINI) 283 MG enema 1 enema 1 enema, Rectal, Two times a day prn, Starting Fri09/09/18 at 1652, Until Discontinued, constipation, if suppository ineffective, Twist off and remove tip. Lubricate tip prior to insertion. Insert slowly into rectum, up to shoulder of tube. Squeeze contents and remove slowly., folic dwsb-atjmvfxkeo-ggpazqgnevrjbb Given 09/18/2018 8:28 AM TRIMMER SAWYER 1 tablet (FOLBEE) tablet 1 tablet 1 tablet, Oral, Daily, First dose on Fri09/11/18 at 0900, Until Discontinued Given 09/17/2018 8:25 AM TRIMMER SAWYER 1 tablet Given 09/16/2018 8:18 AM TRIMMER SAWYER 1 tablet lisinopril (PRINIVIL, ZESTRIL) tablet 20 mg Given 09/18/2018 8:28 AM TRIMMER SAWYER 20 mg 20 mg, Oral, Daily, First dose on Fri09/10/18 at 0900, Until Discontinued, Hold for SBP less than 100, Given 09/17/2018 8:25 AM TRIMMER SAWYER 20 mg Given 09/16/2018 8:23 AM TRIMMER SAWYER 20 mg mirtazapine (REMERON) tablet 7.5 mg Given 09/17/2018 8:36 PM TRIMMER SAWYER 7.5 mg 7.5 mg, Oral, Bedtime, First dose on Fri09/17/18 at 2100, Until Discontinued multivitamin therapeutic with minerals Given 09/18/2018 8:28 AM TRIMMER SAWYER 1 tablet (THERA-M) tablet 1 tablet 1 tablet, Oral, Daily, First dose on Fri09/10/18 at 0900, Until Discontinued Given 09/17/2018 8:25 AM TRIMMER SAWYER 1 tablet Given 09/16/2018 8:18 AM TRIMMER SAWYER 1 tablet nicotine (NICODERM) Applied 09/18/2018 8:30 AM TRIMMER SAWYER 21 mg Arm Left Upper TD 21mg/24hr patch 21 mg (1 patch), Transdermal, Daily, First dose on Fri09/10/18 at 0900, Until Discontinued, Administer over 24 Hours Applied 09/17/2018 8:24 AM TRIMMER SAWYER 21 mg Arm Left Upper TD Applied 09/16/2018 8:27 AM TRIMMER SAWYER 21 mg Right Shoulder omega-3 fatty acids (FISH OIL) capsule Given 09/18/2018 12:20 PM TRIMMER SAWYER 1,000 mg 1,000 mg 1,000 mg, Oral, Three times a day with meals, First dose on Fri09/10/18 at 1130, Until Discontinued Given 09/18/2018 8:27 AM TRIMMER SAWYER 1,000 mg Given 09/17/2018 6:01 PM TRIMMER SAWYER 1,000 mg sodium bicarbonate tablet 650 mg Given 09/18/2018 8:28 AM TRIMMER SAWYER 650 mg 650 mg, Oral, Two times a day, First dose on Fri09/14/18 at 2100, Until Discontinued Given 09/17/2018 8:36 PM TRIMMER SAWYER 650 mg Given 09/17/2018 8:25 AM TRIMMER SAWYER 650 mg traMADol (ULTRAM) tablet 50 mg Given 09/10/2018 12:26 PM TRIMMER SAWYER 50 mg 50 mg, Oral, Every four hours prn, Starting Fri09/09/18 at 1829, Until Discontinued, moderate pain, headache, Recommended maximum daily dose of bttezpui=389 mg. Recommended maximum daily dose in patients 75 years or qxsuw=543 mg., Given 09/09/2018 6:54 PM TRIMMER SAWYER 50 mg vitamin C (ascorbic acid) tablet 250 mg Given 09/18/2018 8:28 AM TRIMMER SAWYER 250 mg 250 mg, Oral, Daily, First dose on Fri09/11/18 at 0900, Until Discontinued Given 09/17/2018 8:25 AM TRIMMER SAWYER 250 mg Given 09/16/2018 8:18 AM TRIMMER SAWYER 250 mg vitamin D3 (cholecalciferol) tablet Given 09/18/2018 8:28 AM TRIMMER SAWYER 2,000 Units 2,000 Units 2,000 Units, Oral, Daily, First dose on Fri09/11/18 at 0900, Until Discontinued Given 09/17/2018 8:25 AM TRIMMER SAWYER 2,000 Units Given 09/16/2018 8:23 AM TRIMMER SAWYER 2,000 Units Medication Order MAR Action Action Date Dose Rate Site acetaminophen (TYLENOL) tablet Given 09/14/2018 8:55 PM TRIMMER SAWYER 1,000 mg 1,000 mg 1,000 mg, Oral, Three times a day, First dose on Fri09/09/18 at 2100, Until Discontinued, Post - Op, Total dose of acetaminophen from all acetaminophen containing products should not exceed 4 grams (4000 mg) per day., Given 09/14/2018 3:41 PM TRIMMER SAWYER 1,000 mg Given 09/14/2018 8:41 AM TRIMMER SAWYER 1,000 mg carVEDilol (COREG) tablet 25 mg Given 09/10/2018 8:16 AM TRIMMER SAWYER 25 mg 25 mg, Oral, Two times a day with meals, First dose on Fri09/09/18 at 1730, Until Discontinued, Take with food. Hold for SBP less than 90 Hold for HR less than 55, heparin (porcine) injection solution Given 09/14/2018 8:41 AM TRIMMER SAWYER 5,000 Units 5,000 Units 5,000 Units, Subcutaneous, Every twelve hours, First dose on Fri09/09/18 at 2100, Until Discontinued, 1 mL Given 09/13/2018 8:44 PM [facility] 5,000 Units Given 09/13/2018 7:54 AM TR[facility] 5,000 Units hydrALAZINE (APRESOLINE) tablet 50 mg Given 09/15/2018 8:33 AM TR[facility] 50 mg 50 mg, Oral, Three times a day, First dose on Fri09/10/18 at 1600, Until Discontinued, Hold for SBP less than 110, Given 09/14/2018 3:40 PM [facility] 50 mg Given 09/14/2018 8:41 AM [facility] 50 mg sodium bicarbonate tablet 650 mg Given 09/14/2018 8:41 AM TR[facility] 650 mg 650 mg, Oral, Four times a day, First dose on Fri09/09/18 at 1730, Until Discontinued Given 09/13/2018 8:17 PM [facility] 650 mg Given 09/13/2018 5:40 PM [facility] 650 mg in this encounter
== END 2018-08-26 11:05 ==
LOC: CC.ED 08:42
DX: I61.5 Nontraumatic intracerebral hemorrhage, intraventricular (principal); I10 Essential (primary) hypertension; Z79.899 Other long term (current) drug therapy
CPT/HCPCS: 36415; 70450; 80053; 80305; 81001; 82550; 84484; 85025; 85610; 93005; 96361; 96374; 96375; 99285; J3010; J3480; J3490; J7030

== ENCOUNTER 2023-11-20 10:07 | Emergency (ER) | payer SELFPAY ==
[2023-11-20 11:24] LABS: HEMATOCRIT 43.2 % (42.0-52.0); HEMOGLOBIN 14.7 g/dL (14.0-18.0); MEAN CORPUSCULAR HEMOGLOBIN 33.8 pg (27.0-32.0); MEAN CORPUSCULAR VOLUME 99.3 fL (83.0-97.0); PLATELET COUNT,PLT 237 10^3/uL (150-400); RED BLOOD CELL COUNT 4.35 x10^6/uL (4.50-6.00)
[2023-11-20] MEDS: Sodium Chloride 0.9% 1,000 ML IV ONE (11:28)
[2023-11-20 11:30] LABS: APPEARANCE,URINE CLEAR (CLEAR); BILIRUBIN,URINE SMALL (NEGATIVE); COLOR,URINE DARK YELLOW (YELLOW); GLUCOSE,URINE NEGATIVE (NEGATIVE); KETONES,URINE NEGATIVE (NEGATIVE); LEUKOCYTE ESTERASE,URINE NEGATIVE (NEGATIVE); NITRITE,URINE NEGATIVE (NEGATIVE); OCCULT BLOOD,URINE TRACE-INTACT (NEGATIVE); PH,URINE 5.5 (4.5-8.0); PROTEIN,URINE NEGATIVE (NEGATIVE); UROBILINOGEN,URINE 0.2 EU/dL (0.2-1.0)
[2023-11-20 11:31] LABS: WHITE BLOOD CELL COUNT,WBC 20.8 10^3/uL (4.0-11.0)
[2023-11-20 11:36] LABS: RBC,URINE 0-5 /HPF (0-5); WBC,URINE 0-5 /HPF (0-5)
[2023-11-20 11:37] LABS: BACTERIA,URINE OCCASIONAL /HPF (NOT SEEN); EPITHELIAL CELLS,URINE OCCASIONAL /HPF (NOT SEEN); MUCUS,URINE NOT SEEN /HPF (NOT SEEN)
[2023-11-20 11:42] LABS: ALBUMIN 2.8 g/dL (3.4-5.0); BILIRUBIN TOTAL 0.6 mg/dL (0.0-1.0); CALCIUM 9.7 mg/dL (8.4-10.1); EST CRCL DRUG DOSING (CG) 7.58 mL/min; PROTEIN TOTAL,TP 7.1 g/dL (6.4-8.2)
[2023-11-20 11:43] LABS: CREATININE 9.6 mg/dL (0.7-1.3); POTASSIUM,K 6.3 mEq/L (3.5-5.0)
[2023-11-20] MEDS ORDERED: Sodium Chloride 0.9% 1,000 ML IV SCH (11:45)
[2023-11-20 11:47] LABS: LYMPHOCYTES ABSOLUTE MAN 0.42 10^3/uL (1.00-4.80); LYMPHOCYTES PERCENT MAN 2 % (21-55); MONOCYTES ABSOLUTE MAN 0.83 10^3/uL (0.00-0.80); MONOCYTES PERCENT MAN 4 % (2-12); NEUTROPHILS ABSOLUTE MAN 19.55 10^3/uL (1.80-7.00); SEG NEUTROPHILS PERCENT MAN 94 % (35-85)
[2023-11-20] MEDS ORDERED: Sodium Chloride 0.9% 500 ML ONE (12:56)
[2023-11-20] MEDS: Aspirin 81 MG Tab.Chew PO ONE (12:57)
[2023-11-20] MEDS: Albumin 25% 25 GM in Sodium Chloride 0.9% 400 ML IV ONE (13:18)
== END 2023-11-20 13:30 ==
LOC: CC.ED 10:07
DX: R41.82 Altered mental status, unspecified (principal); R79.89 Other specified abnormal findings of blood chemistry; I10 Essential (primary) hypertension; J44.9 Chronic obstructive pulmonary disease, unspecified; E78.00 Pure hypercholesterolemia, unspecified; F17.200 Nicotine dependence, unspecified, uncomplicated; Z79.899 Other long term (current) drug therapy
CPT/HCPCS: 36415; 70450; 71045; 80053; 81001; 83605; 84145; 84484; 85025; 93005; 96361; 96374; 99285; A9270; J7030; J7040; P9047